=== PATIENT | male | born 1985 | race Caucasian/White ===

== ENCOUNTER → 2021-07-09 | Outpatient (CLI) | payer OTHER ==
--- NOTE | 2021-07-09 09:47 | Diagnostic Imaging Report ---
CLINICAL INDICATION: Patient with long history of seizures. EXAM: MRI of the brain performed without IV contrast. Sequences include sagittal T1, axial DWI, ADC map, coronal 3D FSPGR with sagittal and axial reformations, axial T1, axial T2, axial FLAIR, coronal gradient echo, coronal T2 thin, and coronal FLAIR thin. COMPARISON: None. FINDINGS: BRAIN PARENCHYMA: There is no evidence of acute cerebral infarction, intracranial hemorrhage, or mass seen. Of note, the hippocampal structures are imaged asymmetrically, but are grossly similar in volume. There is no evidence of cortical dysplasia, vascular malformations, hippocampal sclerosis, or brain parenchyma migrational abnormalities. The brain parenchyma is unremarkable with normal larry/ white matter distinction. The hippocampal structures are symmetric bilaterally. There is no significant architectural distortion, midline shift, or herniation. There is no diffusion restriction signal abnormality. VENTRICLES: Unremarkable with no hydrocephalus. BASAL CISTERNS: Unremarkable. VISUALIZED INTRACRANIAL VESSELS: Unremarkable as visualized. SKULL/ ORBITS: Unremarkable. VISUALIZED SINUSES/ MASTOIDS: There is mild mucosal thickening involving right maxillary sinus and minimal mucosal thickening involving left maxillary sinus. IMPRESSION: 1: Unremarkable MRI of the brain with no evidence of cortical dysplasia, vascular malformations, hippocampal sclerosis, or brain parenchyma migrational abnormalities. 2: Mild paranasal sinus disease. Dictated by: Dictated on workstation # [id number]
== END ==
LOC: RAD 08:00
PROVIDERS: ATTEND Physician Assistant
DX: J32.9 Chronic sinusitis, unspecified (principal); G40.909 Epilepsy, unspecified, not intractable, without status epilepticus
CPT/HCPCS: 70551

== ENCOUNTER 2023-05-16 17:26 | Emergency (ER) | payer SELFPAY ==
[~2023-05-16] VITALS: Ht 177.8 cm; Wt 72.6 kg
[2023-05-16 17:26] VITALS: BP 140/94
[2023-05-16] MEDS ORDERED: LACTATED RINGERS 1,000 ML IV ONE (17:45)
[2023-05-16 17:49] LABS: BASOPHILS # (AUTO) 0.1 10^3/uL (0.0-0.1); BASOPHILS % (AUTO) 2 % (0-10); EOSINOPHILS % (AUTO) 1 % (0-10); HEMATOCRIT 40 % (40-54); HEMOGLOBIN 14.1 g/dL (13.3-17.7); LYMPHOCYTES # (AUTO) 0.8 10^3/uL (1.0-4.0); LYMPHOCYTES % (AUTO) 24 % (12-44); MEAN CORPUSCULAR HEMOGLOBIN 35 pg (25-34); MEAN CORPUSCULAR HGB CONC 36 g/dL (32-36); MEAN CORPUSCULAR VOLUME 99 fL (80-99); MONOCYTES % (AUTO) 30 % (0-12); NEUTROPHILS # (AUTO) 1.4 10^3/uL (1.8-7.8); NEUTROPHILS % (AUTO) 43 % (42-75); PLATELET COUNT 143 10^3/uL (130-400); WHITE BLOOD COUNT 3.4 10^3/uL (4.3-11.0)
[2023-05-16 17:56] LABS: ALBUMIN 4.8 GM/DL (3.2-4.5); CHLORIDE 101 MMOL/L (98-107); POTASSIUM 3.6 MMOL/L (3.6-5.0); SODIUM 137 MMOL/L (135-145)
[2023-05-16 17:57] LABS: CALCIUM 10.1 MG/DL (8.5-10.1)
[2023-05-16 17:58] LABS: GLUCOSE 108 MG/DL (70-105); TOTAL PROTEIN 7.6 GM/DL (6.4-8.2)
[2023-05-16 17:59] LABS: CARBON DIOXIDE 16 MMOL/L (21-32)
[2023-05-16 18:00] LABS: BILIRUBIN,TOTAL 0.5 MG/DL (0.1-1.0)
[2023-05-16 18:02] LABS: ALKALINE PHOSPHATASE 66 U/L (40-136); CREATININE SERUM 0.69 MG/DL (0.60-1.30); GFR ESTIMATED 123
[2023-05-16 18:03] LABS: BUN/CREATININE RATIO 12
[2023-05-16 18:05] LABS: ALANINE AMINOTRANSFERASE 102 U/L (0-55)
[2023-05-16 18:06] LABS: CREATINE KINASE 315 U/L (30-200)
[2023-05-16 18:12] LABS: CREATINE KINASE MB 3.7 NG/ML (<6.6)
[2023-05-16 18:28] LABS: BAND NEUTROPHILS 1 %; BASOPHILS % (MANUAL) 1 %; EOSINOPHILS % (MANUAL) 1 %; LYMPHOCYTES % (MANUAL) 33 %; MONOCYTES % (MANUAL) 24 %; NEUTROPHILS % (MANUAL) 40 %; PLATELET ESTIMATE NORMAL; RBC MORPH NORMAL
== END 2023-05-16 18:00 | disposition left against medical advice (07) ==
LOC: EDUNIT# 17:26 → ER 17:27
DX: G40.909 Epilepsy, unspecified, not intractable, without status epilepticus (principal); Z28.310 Unvaccinated for COVID-19; Z79.899 Other long term (current) drug therapy
CPT/HCPCS: 80053; 80164; 82550; 82553; 83735; 83874; 84484; 85007; 85027; 93041; 99284; G0480; 36415; 80320